=== PATIENT | male | born 1955 | race Caucasian/White ===

== ENCOUNTER 2016-07-24 10:47 | Day surgery (SDC) | payer MEDICARE, OTHER ==
[~2016-07-24] VITALS: Ht 177.8 cm; Wt 73.0 kg
[~2016-07-24 10:47] MED LIST: 0.9% Sodium Chloride 1,000 ML IV PRN; NAPR220C11 PO; Sodium Chloride LOK Flush 10 mL Syringe IV PRN; fentaNYL-PF 50 mCg/mL 2 mL Inj IVPUSH PRN
[2016-07-24] MEDS ORDERED: OXYC-474 PO (11:03)
[2016-07-24] MEDS ORDERED: NAPR220C16 PO (11:05)
[2016-07-24 11:06] VITALS: BP 128/83; PULSE 83; RESP 16; O2SAT 97
[2016-07-24] MEDS ORDERED: fentaNYL-PF 50 mCg/mL 2 mL Inj ONE (11:12)
[2016-07-24 11:50] VITALS: BP 137/81; PULSE 70; RESP 16; O2SAT 98
[2016-07-24 12:00] VITALS: BP 140/80; PULSE 66; RESP 16; O2SAT 96
[2016-07-24 12:07] VITALS: BP 148/94; PULSE 75; RESP 16; O2SAT 98
--- NOTE | 2016-07-24 13:23 | ENDO ---
[address] [address] ENDOSCOPY PROCEDURE PATIENT: MIRACLE REILLY : 1955 MR#: [id number] ADMIT: 07/24/2016 JOB ID: [id number] DATE OF SERVICE: 07/24/2016 PROCEDURE: Colonoscopy. INDICATIONS: Screening. ASA CLASSIFICATION: I MALLAMPATI SCORE: 2 MEDICATIONS: Versed 7 mg, fentanyl 125 mcg. INSTRUMENT USED: PCF-H180AL. PREP QUALITY: Fair. PROCEDURE DETAILS: After informed consent was obtained, the patient was brought into the GI suite where he was placed on oxygen via nasal cannula and monitored with continuous pulse oximeter, telemetry, and blood pressure monitoring. A time-out was performed. Then, he was placed in a left lateral decubitus position and medications were administered for sedation. Digital rectal exam with palpation of the prostate was performed which revealed an enlarged prostate without any palpable masses. The colonoscope was then inserted into the rectum and advanced under direct visualization to the cecum, which was identified by the presence of the ileocecal valve and appendiceal orifice. Once the cecum was reached, the colonoscope was then withdrawn back to the rectum as the mucosa and lumen were examined. In the rectum, retroflexion was performed. Following retroflexion, remaining air in the rectum was suctioned, and procedure was completed. FINDINGS: 1. Scattered diverticula were seen throughout the entire colon. 2. Otherwise normal exam from rectum to cecum. IMPRESSION: Pandiverticulosis. RECOMMENDATIONS: Fiber-rich diet and repeat colonoscopy in 10 years, sooner if symptoms should dictate. COMPLICATIONS: None. ESTIMATED BLOOD LOSS: Zero.
== END 2016-07-24 23:59 | disposition home or self-care (01) ==
LOC: END 10:47
PROVIDERS: ATTEND Internal Medicine Gastroenterology
DX: Z12.11 Encounter for screening for malignant neoplasm of colon (principal); K57.30 Diverticulosis of large intestine without perforation or abscess without bleeding; E78.2 Mixed hyperlipidemia; N40.1 Benign prostatic hyperplasia with lower urinary tract symptoms; R35.1 Nocturia; R39.12 Poor urinary stream; M51.26 Other intervertebral disc displacement, lumbar region; Z96.642 Presence of left artificial hip joint
CPT/HCPCS: 99153; G0121; G0500; J2250; J3010; J7030